=== PATIENT | male | born 1980 | race Caucasian/White ===

== ENCOUNTER → 2016-09-30 | Outpatient (CLI) | payer OTHER | LOC: RAD 11:39 | DX: M79.631 Pain in right forearm (principal); M25.521 Pain in right elbow; M79.601 Pain in right arm ==

== ENCOUNTER → 2016-10-26 | Outpatient (CLI) | payer OTHER | LOC: ULTRA 08:22 | DX: R22.1 Localized swelling, mass and lump, neck (principal) ==

== ENCOUNTER → 2016-11-12 | Outpatient (CLI) | payer OTHER | LOC: CAT 11-06 12:20 | DX: R59.0 Localized enlarged lymph nodes (principal) ==